=== PATIENT | male | born 1970 | race African-American/Black ===

== ENCOUNTER 2016-09-26 07:37 | Emergency (ER) | payer OTHER ==
[~2016-09-26 07:37] MED LIST: ACCUPRIL10 MG PO; FLEXERIL10 M1 PO; FLEXERIL10 MG PO; HYDROCHLOROTH12.5 M1; HYDROCHLOROTH12.5 M1 PO; HYDROCHLOROTH12.5 MG PO; HYDROCODON-ACE1 EAC9 PO; IBUPROFEN800 MG PO; KEFLEX500 MG PO; LISINOPRIL10 MG; LISINOPRIL10 MG PO; MEDROL4 MG/DOSE- PO; NAPROSYN250 M1; NAPROSYN500 MG PO; NEURONTIN PO; NO MEDICATIONS; PERCOCET 5-3251 TAB PO; SILVADENE TOP; TIZANIDINE HCL4 M1 PO; TYLENOL #3 PO; ZOFRAN PO
== END 2016-09-26 08:35 | disposition home or self-care (01) ==
LOC: SED 07:37
DX: S39.012A Strain of muscle, fascia and tendon of lower back, initial encounter (principal); F17.200 Nicotine dependence, unspecified, uncomplicated; Z88.6 Allergy status to analgesic agent; Z79.899 Other long term (current) drug therapy; X58.XXXA Exposure to other specified factors, initial encounter; Y92.9 Unspecified place or not applicable
CPT/HCPCS: 96372; 99283; J1885

== ENCOUNTER 2016-12-25 17:37 | Emergency (ER) | payer OTHER ==
[2016-12-25] MEDS ORDERED: PERCOCET 7.5MG PO (17:41)
== END 2016-12-25 19:54 ==
LOC: SED 17:37
DX: S63.612A Unspecified sprain of right middle finger, initial encounter (principal); I10 Essential (primary) hypertension; M54.9 Dorsalgia, unspecified; Z88.8 Allergy status to other drugs, medicaments and biological substances; X58.XXXA Exposure to other specified factors, initial encounter; Y92.009 Unspecified place in unspecified non-institutional (private) residence as the place of occurrence of the external cause
CPT/HCPCS: 96372; 99284; J1885